=== PATIENT | male | born 1995 ===

== ENCOUNTER → 2017-09-17 | Outpatient (CLI) | payer OTHER ==
[2017-09-18 13:54] LABS: Stool Occult Bld Immuno 1 Negative (NEGATIVE)
== END ==
LOC: LAB SHORT 17:00 → LAB UCHC 17:00 → LAB SHORT 09-18 08:14
PROVIDERS: Nurse Practitioner Primary Care
DX: K62.5 Hemorrhage of anus and rectum (principal)
CPT/HCPCS: G0328